=== PATIENT | male | born 1960 | race Caucasian/White ===

== ENCOUNTER 2024-01-12 15:14 | Emergency (ER) | payer MEDICAID ==
[~2024-01-12] VITALS: Ht 188 cm; Wt 77.9 kg
[2024-01-12 15:15] VITALS: BP 136/85; PULSE 91; RESP 16; TEMP 97.7; O2SAT 98
[2024-01-12] MEDS ORDERED: PRED20TA PO (15:39)
[2024-01-12] MEDS ORDERED: TRIA15CR61 TOP (15:39)
[2024-01-12] MEDS ORDERED: CEPH-585 PO (15:39)
[2024-01-12] MEDS ORDERED: HYDR-3686 PO (15:39)
[2024-01-12] MEDS: famotidine 20mg tablet PO ONE (16:01)
[2024-01-12] MEDS: dexamethasone sod phosphate 10mg/ml inj IM STA (16:01)
[2024-01-12] MEDS: diphenhydrAMINE 50 mg/ml inj IM ONE (16:01)
== END 2024-01-12 17:03 | disposition home or self-care (01) ==
LOC: ER 15:14
DX: L42 Pityriasis rosea (principal)
CPT/HCPCS: 96372; 99284; J1100; J1200

== ENCOUNTER 2024-03-06 08:58 | Emergency (ER) | payer MEDICAID ==
[~2024-03-06] VITALS: Ht 188 cm; Wt 84.7 kg
[2024-03-06] MEDS ORDERED: BETA45OI2 TOP (10:48)
[2024-03-06 10:58] VITALS: BP 146/88; PULSE 85; RESP 14; TEMP 98.6; O2SAT 99
== END 2024-03-06 10:55 | disposition home or self-care (01) ==
LOC: ER 08:58
DX: L30.9 Dermatitis, unspecified (principal); Z59.00 Homelessness unspecified; Z56.0 Unemployment, unspecified
CPT/HCPCS: 99283

== ENCOUNTER 2024-12-07 18:57 | Inpatient (IN) | payer MEDICAID ==
[~2024-12-07] VITALS: Ht 188 cm; Wt 83.3 kg
[~2024-12-07 18:57] MED LIST: BETA45OI2 TOP
[2024-12-07 19:36] LABS: MEAN PLATELET VOLUME 6.8 FL (7.4-10.4); RED CELL DISTRIBUTION WIDTH 17.2 % (11.5-14.5)
[2024-12-07 19:45] LABS: CREATININE 0.99 MG/DL (0.60-1.10); TOTAL CARBON DIOXIDE 26.8 MMOL/L (24-32); eCRCL 88 ML/MIN; eGFR 76 ML/MIN
--- NOTE | 2024-12-07 20:13 | Physician Documentation ---
History of Present Illness ~ Chief Complaint: Arm Pain Stated Complaint: HAND INFECTION Time Seen by MD: 19:19 Primary Medical Doctor: NONE Mode of Arrival: POV HPI Patient is seen today with complaints of infection in his arms bilaterally with scab formation and swelling and increased pain and drainage and discharge from both arms that is patient states started about four or five days ago. Patient states he does feel little feverish with some chills occasionally. He denies any chest pain or shortness of breath or abdominal pain or nausea, vomiting, diarrhea. Patient has no other concern or complaint at this time. Tetanus within 5 years: Yes Medication Reconciliation Allergies: Coded Allergies: No Known Allergies (Unverified , 12/07/24) Scheduled Betamethasone Dipropionate (Betamethasone Dipropionate), 1 APPLIC TOP Q12H Miscellaneous Medications Home Med List (No Home Medications), (Reported) Past Medical History Past Medical History: No Pertinent History Past Surgical History: no surgical history Alcohol Use: None Drug Use: none Lives In: Homeless Occupation: unemployed Review of Systems Constitutional: Denies: chills, fever, weakness Eyes: Denies: pain, blurred vision ENT: Denies: ear pain, nose pain, throat pain, mouth pain Respiratory: Denies: cough, shortness of breath Cardiovascular: Denies: chest pain, palpitations Gastrointestinal: Denies: abdominal pain, nausea, vomiting Genitourinary: Denies: burning, dysuria Male Genitalia: Denies: penile discharge, testicular pain Neurological: Denies: headache, dizziness Musculoskeletal: Denies: pain, swelling Integumentary: Denies: rash, lesions Allergic/Immunologic: Denies: hives, itching Hematologic/Lymphatic: Denies: no symptoms reported Psychiatric: Denies: depression, anxiety Physical Exam Vital Signs: Temperature: 99.6, Source: Temporal, Heart Rate: 109, Respiratory Rate: 16, BP: 132/95, Pulse Oximetry: 97, Weight: 83.300 Oxygen Flow Rate: 0 Physical Exam General: Awake and Alert, no acute distress. HEENT: Conjunctiva pink, Sclera clear, Mucus Membranes moist. Neck: Supple without masses and tenderness. Resp: Unlabored. Lungs clear to auscultation bilaterally. Heart: Regular Rate and rhythm, normal S1 and S2 without murmur, rub or gallop. Extremities: No cyanosis,clubbing or edema. Skin: On exam has severe erythema and multiple scab formation and drainage from multiple wound sites of bilateral upper extremities from about the mid upper arm/humerus down to the hands. Progress Results/Orders Results/Orders Orders - JOHNATHAN GORDILLO Hospitalist (12/07/24 20:09) Fill Out Med Reconciliation (12/07/24 20:09) Forearm,Incl.One Joint (12/07/24 21:19) Completed Orders - JOHNATHAN GORDILLO Normal Saline 1000ml (0.9% Sodium Chlori (12/07/24 20:02) Normal Saline 1000ml (0.9% Sodium Chlori (12/07/24 20:02) Vancomycin*Pharmacy To Dose* (Vancomycin (12/07/24 20:08) Dexamethasone Inj (Decadron 10mg/Ml Inj) (12/07/24 20:08) Vancomycin/Ns 1 Gm Add-[place] (Vancomyc (12/07/24 20:22) Forearm,Incl.One Joint (12/07/24 21:19) Medications Received in ER Medications (Trade) Dose Ordered Sig/Andres Route PRN Reason Start Time Stop Time Status Last Admin Dose Admin Sodium Chloride 1,000 ml @ 1,000 mls/hr ONCE STAT IV 12/07/24 20:02 12/07/24 21:01 DC 12/07/24 20:29 1,000 MLS/HR Sodium Chloride 1,000 ml @ 1,000 mls/hr ONCE STAT IV 12/07/24 20:02 12/07/24 21:01 DC 12/07/24 20:29 1,000 MLS/HR (Decadron 10mg/ ml inj) 12 mg ONCE STAT IV 12/07/24 20:08 12/07/24 20:10 DC 12/07/24 20:30 12 MG Vancomycin HCl 250 ml @ 166 mls/hr ONCE ONCE IV 12/07/24 20:22 12/07/24 21:52 DC 12/07/24 20:33 166 MLS/HR Vital Signs 12/07/24 12/07/24 12/07/24 19:05 19:22 20:38 Temp 99.6 Pulse 109 94 Resp 16 16 16 B/P (MAP) 132/95 141/82 (101) Pulse Ox 97 94 O2 Flow Rate 0 0 Laboratory Tests Test 12/07/24 19:20 White Blood Count 14.9 H Red Blood Count 4.21 L Hemoglobin 11.6 L Hematocrit 34.2 L Mean Corpuscular Volume 81.4 Mean Corpuscular Hemoglobin 27.6 Mean Corpuscular Hemoglobin Concent 33.9 Red Cell Distribution Width 17.2 H Platelet Count 612 H Mean Platelet Volume 6.8 L Neutrophils (%) (Auto) 82.4 H Lymphocytes (%) (Auto) 8.5 L Monocytes (%) (Auto) 6.8 Eosinophils (%) (Auto) 1.7 Basophils (%) (Auto) 0.6 Neutrophils # (Auto) 12.3 H Lymphocytes # (Auto) 1.3 Monocytes # (Auto) 1.0 H Eosinophils # (Auto) 0.2 Basophils # (Auto) 0.1 CBC Comment Sodium Level 127 L Potassium Level 4.8 Chloride Level 96 L Carbon Dioxide Level 26.8 Anion Gap 4 L Blood Urea Nitrogen 12 Creatinine 0.99 Estimated GFR/1.73 m2 76 BUN/Creatinine Ratio 12.1 Glucose Level 114 H Hemoglobin A1c 5.9 Lactic Acid Level 2.8 H Calcium Level 8.5 Pro-B-Type Natriuretic Peptide 209 H Albumin 2.5 L Procalcitonin < 0.05 Chemistry Comments Microbiology Date/Time Source Procedure Growth Status 12/07/24 19:26 Blood Arm Left Blood Culture - Preliminary NEGATIVE (LESS THAN 24 HOURS) Resulted Medical Decision Making Findings Patient is seen today with complaints of infection in his arms bilaterally with scab formation and swelling and increased pain and drainage and discharge from both arms that is patient states started about four or five days ago. Patient states he does feel little feverish with some chills occasionally. He denies any chest pain or shortness of breath or abdominal pain or nausea, vomiting, diarrhea. Patient has no other concern or complaint at this time. Patient did have elevated white count and lactic acid on labs. Given patient's severity of infection, IV vancomycin was started as well as IV fluids normal saline, hospitalist was consulted and patient will be admitted for further eval and treatment. Departure Disposition: ADMITTED INPATIENT Admitted to Inpatient Unit: to hospitalist Admission Level of Care: Med/Surg Impression: Primary Impression: Cellulitis of arm Qualified Codes: L03.119 - Cellulitis of unspecified part of limb Condition: Stable Additional Instructions: Patient did have elevated white count and lactic acid on labs. Given patient's severity of infection, IV vancomycin was started as well as IV fluids normal saline, hospitalist was consulted and patient will be admitted for further eval and treatment. Referrals: NO PRIMARY CARE PROVIDER (PCP) Signature Scribe Signature: No scribe Attestation: No scribe JOHNATHAN GORDILLO PAC Dec 07, 2024 20:13
[2024-12-07] MEDS: normal saline 1000ml 1,000 ML IV STA ×2 (20:29)
[2024-12-07] MEDS: dexamethasone sod phosphate 10mg/ml inj IV STA (20:30)
[2024-12-07] MEDS: vancomycin/NS 1 GM ADD-VANTAGE 250 ML IV ONE ×2 (20:33→22:32)
[2024-12-07] MEDS ORDERED: NO HOME MEDS (20:37)
--- NOTE | 2024-12-07 21:36 | RADIOLOGY REPORT ---
CLINICAL INDICATION: BILATERAL CELLULITIS RIGHT TECHNIQUE: DI FOREARM,INCL.ONE JOINT Comparison: None FINDINGS / IMPRESSION: No osseous abnormality identified. Elbow and carpal joint spaces are normal. Degenerative changes not ed in 1st CMC joint. Evidence of mild soft swelling in proximal forearm.
--- NOTE | 2024-12-07 21:36 | RADIOLOGY REPORT ---
EXAM: DI FOREARM,INCL.ONE JOINT REASON FOR EXAM: bilateral arm cellulitis TECHNIQUE: AP and lateral views of the left forearm are submitted for review. COMPARISON: None FINDINGS: The bones demonstrate grossly normal mineralization. No acute fracture or dislocation . Th ere is mild diffuse soft tissue edema. IMPRESSION: No acute fracture. Mild diffuse soft tissue edema.
--- NOTE | 2024-12-07 21:36 | RADIOLOGY REPORT ---
CHEST RADIOGRAPH Indication: sepsis protocol Technique: Single frontal view of the chest was obtained Comparison: None FINDINGS: Lines and Tubes: None Lungs: No focal consolidation. Hyperinflation of the lungs. Minimal blunting of the right costophren ic angle. No pneumothorax. Cardiomediastinal contours: Unremarkable Bones: No acute osseous abnormality. IMPRESSION: Hyperinflation of the lungs. Minimal blunting of the right costophrenic angle which may be from atel ectasis / scarring /trace effusion.
[2024-12-07 21:46] LABS: UA COLLECTION TYPE NON-SPECIFIED
[2024-12-07 21:50] LABS: LEUKOCYTE ESTERASE ,URINE NEGATIVE (Neg); NITRITES, URINE NEGATIVE (Neg); OCCULT BLOOD,URINE SMALL (Neg)
[2024-12-07 21:52] LABS: MUCUS STRANDS FEW /LPF (Neg); SQUAMOUS EPITHELIAL CELL,UR FEW /LPF (FEW)
[2024-12-07] MEDS ORDERED: magnesium Cl slow-release 64mg tablet PO PRN (22:05)
[2024-12-07] MEDS ORDERED: magnesium sulf-water 2g/50mL 50 ML IV PRN (22:05)
[2024-12-07] MEDS ORDERED: potassium Cl 40MEQ/1/2NS 520ml 520 ML IV PRN (22:05)
[2024-12-07] MEDS ORDERED: HYDROcodone/acetaminophen 10/325mg tab PO PRN (22:05)
[2024-12-07] MEDS ORDERED: ondansetron/PF 4mg/2ml inj IV PRN (22:05)
[2024-12-07] MEDS ORDERED: mag hydrox/Alum hydrox/simeth 30ml oral suspension PO PRN (22:05)
[2024-12-07] MEDS ORDERED: magnesium sulf-water 4G/100mL 100 ML IV PRN (22:05)
[2024-12-07] MEDS ORDERED: HYDROcodone/acetaminophen 5mg/325mg tablet PO PRN (22:05)
[2024-12-07] MEDS ORDERED: potassium Cl 20 mEq SR tablet PO PRN ×2 (22:05)
[2024-12-07] MEDS: CefTRIAXone/D5W-Rocephin 1gm 50 ML IV SCH (22:30)
[2024-12-07] MEDS: normal saline 1000ml 1,000 ML IV SCH (22:31)
[2024-12-07 22:32] LABS: PRO BRAIN NATRIURETIC PEPTIDE 209 PG/ML (0-125)
--- NOTE | 2024-12-07 23:13 | HISTORY AND PHYSICAL-Residence ---
History & Physical Providers to CC Resident Creating Document: CHELI CREWS RES ~ History of Present Illness Primary Medical Doctor: NONE Reason for Admit\Complaint: CELLULITIS BILATERAL UPPER EXTREMITY AND LEFT LOWER EXTREMITY History of Present Illness 74-year-old male with chronic upper and lower extremity rash presented to the ED chief complaints of worsening complains of edema, erythema and itching of bilateral upper and lower extremity. He states that his symptoms have been getting worse since the last week after he was working in his garden. He thinks he had a bug bite while doing yard work. Has a associated fever and chills. He smokes around three cigarettes a day and drinks occasional alcohol. Uses marijuana. Denies chest pain, dizziness, headaches, shortness of breath, nausea vomiting diarrhea or constipation. Discussed advanced care directives and he wishes to be DNR. Allergies: Coded Allergies: No Known Allergies (Unverified , 12/07/24) Home Medications Home Medications Active Betamethasone Dipropionate 0.05 % Oint...g. 1 Applic TOP Q12H Reported No Home Medications (Home Med List) Each Past Medical History Past Medical History None Past Surgical History Surgical History Comment Appendectomy Past Social History Smoking: Non-Smoker Alcohol Use: None Drug Use: None Lives In: Homeless Occupation: unemployed ROS ROS Reviewed in full. All negative except for pertinent positive HPI. Constitutional: Denies: chills, fever, weakness Eyes: Denies: pain, blurred vision ENT: Denies: ear pain, nose pain, throat pain, mouth pain Respiratory: Denies: cough, shortness of breath Cardiovascular: Denies: chest pain, palpitations Gastrointestinal: Denies: abdominal pain, nausea, vomiting Genitourinary: Denies: burning, dysuria Male Genitalia: Denies: penile discharge, testicular pain Neurological: Denies: headache, dizziness Musculoskeletal: Denies: pain, swelling Integumentary: Denies: rash, lesions Allergic/Immunologic: Denies: hives, itching Hematologic/Lymphatic: Denies: no symptoms reported Psychiatric: Denies: depression, anxiety Exam Vitals: Vital Signs Date Time Temp Pulse Resp B/P (MAP) Pulse Ox O2 Delivery O2 Flow Rate FiO2 12/07/24 20:38 94 16 141/82 (101) 94 0 12/07/24 19:05 99.6 General: General: Awake and Alert, no acute distress. HEENT: Conjunctiva pink, Sclera clear, Mucus Membranes dry. Neck: Supple without masses and tenderness. Resp: Unlabored. Equal breath sounds bilaterally. Heart: Regular rhythm, normal S1 and S2, no rub, murmur or gallop. Abdomen: Soft and non tender no organomegaly. Normal bowel sounds x4 quadrant normoactive. No guarding or rigidity. Extremities: Severe erythema, edema, scaling and crusting of bilateral upper extremity. Multiple scabs and wounds on the upper extremity. Left lower extremity erythema and edema up to knee, edema is 2+. Foul-smelling wound on the left anterior leg. PROTOHISTORIAN: No gross motor or sensory abnormalities. Diagnostic Data Last Recorded Lab Results: 12/07/24191912/07/241919 Advance Care Planning Advanced Care plannin - 30 Minutes Additional Plan 74-year-old male with chronic upper and lower extremity rash presented to the ED chief complaints of worsening complains of edema, erythema and itching of bilateral upper and lower extremity. Bilateral upper extremity chronic wounds with cellulitis Left lower extremity cellulitis Meeting SIRS criteria Severe erythema and edema of the upper extremity with multiple wounds, scabs and crusting Left lower extremity significant erythema edema with open wound on the anterior leg and foul-smelling Neutrophilic leukocytosis WBCs 14.9, lactic acid 2.8, procalcitonin within normal limits Received 2 L fluid bolus in the ED Was given vancomycin and Decadron in the ED Started IV antibiotics vanc and ceftriaxone Fluid resuscitation NS at 100 mL/hour Follow up with wound cultures, blood cultures, repeat LA, UTox Ordered CT of the left lower extremity, follow up with results Wound care consulted, appreciate recommendations Anemia Thrombocytosis No active signs or symptoms of bleeding, likely chronic Follow up iron studies, Continue to monitor CBC Awaiting med rec Code Status: DNR DVT prophylaxis: Lovenox Analgesia/sedation: [place] Line/tube: PIV GI prophylaxis: None Nutrition: Regular diet Prognosis: Guarded Disposition: Continue medical management. Cheli Crews MD. IM Resident PGY-3 Discussed case with resident and agree with the assessment and plan above with no changes. Sierra Thakur MD Critical Care Date of Service: Dec 07, 2024 Billing Provider: SIERRA THAKUR MD, ELIZABETH, JITENDRA Dec 07, 2024 23:12 SIERRA THAKUR MD Dec 09, 2024 10:08
[2024-12-07 23:25] VITALS: BP 150/81; PULSE 83; RESP 20; TEMP 97.6; O2SAT 97
[2024-12-08] VITALS (7 sets, daily range): BP systolic 106–135; BP diastolic 71–77; PULSE 68–76; RESP 15–20; TEMP 97.4–98.5; O2SAT 95–100
[2024-12-08 01:48] LABS: LEUKOCYTE ESTERASE ,URINE NEGATIVE (Neg); NITRITES, URINE NEGATIVE (Neg); OCCULT BLOOD,URINE SMALL (Neg)
[2024-12-08 01:51] LABS: UA COLLECTION TYPE CLN CATCH MIDSTREAM
[2024-12-08 01:53] LABS: MUCUS STRANDS FEW /LPF (Neg); SQUAMOUS EPITHELIAL CELL,UR FEW /LPF (FEW)
[2024-12-08 01:54] LABS: URINE AMPHETAMINE SCREEN POSITIVE (Neg); URINE BARBITUATE SCREEN NEGATIVE (Neg); URINE BENZODIAZEPINES SCREEN NEGATIVE (Neg); URINE CANNABINOID SCREEN POSITIVE (Neg); URINE COCAINE SCREEN NEGATIVE (Neg); URINE METHADONE SCREEN NEGATIVE (Neg); URINE OPIATE SCREEN NEGATIVE (Neg); URINE PHENCYCLIDINE SCREEN NEGATIVE (Neg)
[2024-12-08] MEDS: mometasone furoate 0.1% ointment 15g TP SCH (03:07)
--- NOTE | 2024-12-08 05:13 | RADIOLOGY REPORT ---
INDICATION: LEFT LEG CELLULITIS COMPARISON: None TECHNIQUE: CT of the left lower extremity was performed without contrast. Volume transverse images we re obtained and reconstructed in multiple planes using bone and soft tissue algorithms. Radiation Dose Information: CT Dose: CTDI volume is 16.8 mGy. Dose-length product is 1290.8 mGy*cm FINDINGS: The alignment is normal. The joint spaces are normal. No acute fracture or dislocation. 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 There is no joint effusion. Moderate diffuse subcutaneous soft-tissue edema and swelling most prominent in the calf, ankle and fo ot. IMPRESSION: Findings are suspicious for cellulitis.
[2024-12-08 05:29] LABS: MEAN PLATELET VOLUME 7.0 FL (7.4-10.4); RED CELL DISTRIBUTION WIDTH 17.1 % (11.5-14.5)
[2024-12-08 05:41] LABS: INR 1.1 INR
[2024-12-08 05:47] LABS: % IRON SATURATION 5 % (11-46)
[2024-12-08 06:01] LABS: CREATININE 0.74 MG/DL (0.60-1.10); PHOSPHORUS 3.3 MG/DL (2.3-4.5); TOTAL CARBON DIOXIDE 26.8 MMOL/L (24-32); eCRCL 117 ML/MIN; eGFR > 90 ML/MIN
[2024-12-08] MEDS: enoxaparin 40mg/0.4ml syringe SUBCUT SCH (07:25)
[2024-12-08] MEDS: nicotine 14mg patch - 24hr TD SCH (07:26)
[2024-12-08] MEDS: K and/or MAG REPLACEMENT MC SCH (08:00)
[2024-12-08] MEDS: vancomycin/NS 1 GM ADD-VANTAGE 250 ML IV SCH (08:59)
--- NOTE | 2024-12-08 12:16 | PROGRESS NOTE- Residence ---
Progress Note - Resident Providers to CC Resident Creating Document: MINNIE BIRCH RES ~ Antibiotic Timeout Antibiotic Ordered?: Yes Subjective Patient was examined at bed and has pain in his left leg,in addition patient also complain that rashes on his arm are itchy. patient is afebrile now. Objective Vital Signs Date Time Temp Pulse Resp B/P (MAP) Pulse Ox O2 Delivery O2 Flow Rate FiO2 12/08/24 08:00 20 97 Room Air 0.0 12/08/24 06:30 71 12/08/24 06:00 98.0 106/73 (84) Result Diagram: 12/08/2445612/08/24456 General: Awake and Alert, no acute distress. HEENT: Conjunctiva pink, Sclera clear, Mucus Membranes moist. Neck: Supple without masses and tenderness. Resp: Unlabored. Equal breath sounds bilaterally. Heart: Regular rhythm, normal S1 and S2, no rub, murmur or gallop. Abdomen: Soft and non tender no organomegaly. No guarding or rigidity. Extremities: Severe erythema, edema, scaling and crusting of bilateral upper extremity. Multiple scabs and wounds on the upper extremity. Left lower extremity erythema and edema up to knee, edema is 2+. Foul-smelling wound on the left anterior leg. 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 Coagulation Studies Laboratory Tests Test 12/08/24 04:57 Prothrombin Time 11.3 SECONDS (9.0-12.0) INR International Normalized Ratio 1.1 INR Coagulation Comments Assessment Assessment 74-year-old male with chronic upper and lower extremity rash presented to the ED chief complaints of worsening complains of edema, erythema and itching of bilateral upper and lower extremity. Plan Plan Bilateral uper and lower extremity possible superimposed soft tissue infection on chronic skin lesions Meeting SIRS criteria Severe erythema and edema of the upper extremity with multiple wounds, scabs and crusting Left lower extremity significant erythema edema with open wound on the anterior leg and foul-smelling Neutrophilic leukocytosis WBCs 14.9, lactic acid 2.8, procalcitonin within normal limits Received 2 L fluid bolus in the ED Was given vancomycin and Decadron in the ED Started IV antibiotics vanc and ceftriaxone Fluid resuscitation NS at 100 mL/hour Follow up with wound cultures, blood cultures, repeat LA, UTox Ordered CT of the left lower extremity, follow up with results Wound care consulted, appreciate recommendations On 12/08/2024 Ceftriaxone Discontinued. Patient continued on vancomycin, pharmacy to dose. Predisone 40 mg started. Wbc count is improved to 13.4 Normoctytic anemia/Iron deficiency anaemia Iron 11, TIBC 208, %saturation 5 Thrombocytosis No active signs or symptoms of bleeding, likely chronic Montior H and H. Disposition: Will continue to monitor patient, we will most likely refer him to network control supervisor. Date of Service: Dec 08, 2024 Billing Provider: KHANG PERRY MD Common Visit Codes: [id number] INP/OBS CARE(HIGH) MINNIE BIRCH, RES Dec 08, 2024 12:16 KHANG PERRY MD Dec 08, 2024 20:29
[2024-12-08] MEDS: VANCOmycin 1250MG/NS 250ml Bag 250 ML IV SCH (19:27)
[2024-12-09 06:00] VITALS: BP 138/79; PULSE 61; RESP 16; TEMP 97.4; O2SAT 99
[2024-12-09 06:10] LABS: MEAN PLATELET VOLUME 7.0 FL (7.4-10.4); RED CELL DISTRIBUTION WIDTH 17.3 % (11.5-14.5)
[2024-12-09 06:27] LABS: CREATININE 0.81 MG/DL (0.60-1.10); PHOSPHORUS 3.5 MG/DL (2.3-4.5); TOTAL CARBON DIOXIDE 26.9 MMOL/L (24-32); eCRCL 107 ML/MIN; eGFR > 90 ML/MIN
[2024-12-09 10:00] VITALS: BP 122/66; PULSE 62; RESP 16; TEMP 97.8; O2SAT 96
[2024-12-09] MEDS ORDERED: DOXY-243 PO (13:06)
[2024-12-09] MEDS ORDERED: ACET650T58 PO (13:06)
[2024-12-09] MEDS ORDERED: MULT-25 PO (13:06)
[2024-12-09] MEDS ORDERED: PRED10TA PO (13:06)
--- NOTE | 2024-12-09 15:10 | DISCHARGE SUMMARY-Residence ---
Discharge Summary Providers to CC Resident Creating Document: MINNIE BIRCH RES ~ Discharge Summary Admission Diagnosis: Possible Cellulitis superimposed on underlying skin condition. Hospital Course DATE OF ADMISSION: 12/07/2024 DATE OF DISCHARGE:12/09/2024 Labs on Discharge Day Wbc: 13.2 Rbc: 3.80 hemoglobin: 10.5 Creatinine: 0.81 Platelet count: 492 Imaging 12/07/24: Chest X-ray: No acute cardiopulmonary disease. 12/07/24: Lower Extremity CT: Findings suspicious for cellulitis 12/07/24: Forearm Left X- Ray: The bones demonstrate grossly normal mineralization. No acute fracture or dislocation .There is mild diffuse soft tissue edema. 12/07/24: Forearm Right X-ray: No osseous abnormality identified. Elbow and carpal joint spaces are normal. Degenerative changes noted in 1st CMC joint. Evidence of mild soft swelling in proximal forearm. Discharge Diagnosis\Comment: Possible Cellulitis superimposed on underlying skin condition. Operations\Procedures: none Consultants: none Complications: None Condition on DC: Stable New Medications: Acetaminophen (Acetaminophen 8 Hour) 650 Mg Tablet.sa 1 TAB PO Q8H for 7 Days, #20 TAB Doxycycline Hyclate (Doxycycline Hyclate) 100 Mg Tablet.dr 100 MG PO BID for 7 Days, #14 TAB Multivitamin with Folic Acid (Thera Tablet) 400 Mcg Tablet 1 TAB PO DAILY for 30 Days, #30 TAB 0 Refills Prednisone (Prednisone) 10 Mg Tablet 0 PO DAILY for 3 Days, #6 TAB Take 2 tablets daily for 3 days Discharge Summary: History of Present Illness 74-year-old male with chronic upper and lower extremity rash presented to the ED chief complaints of worsening complains of edema, erythema and itching of bilateral upper and lower extremity. He states that his symptoms have been getting worse since the last week after he was working in his garden. He thinks he had a bug bite while doing yard work. Has a associated fever and chills. He smokes around three cigarettes a day and drinks occasional alcohol. Uses marijuana. Denies chest pain, dizziness, headaches, shortness of breath, nausea vomiting diarrhea or constipation. Discussed advanced care directives and he wishes to be DNR. Hospital Course Patient presented to ER with complain of edema, erythema and itching of bilateral upper and lower extremities which was suspected to be possible cellulitis superimposed on underlying skin condition.Patient received 2 L of NS fluid bolus, NS 1000 ml@100 ml/hr, IV Ceftriaxone and Vancomycin. Patient also received decadron once and later was started on prednisone 40 mg QAM PO Mometasone furoate ointment was applied too. In addition to that CT scan lower extremity performed which was suspicious for cellulitis. DVT Prophylaxis: Lovenox 40 mg daily. Vital Signs on Discharge Day Date Time Temp Pulse Resp B/P (MAP) Pulse Ox O2 Delivery O2 Flow Rate FiO2 12/09/24 10:00 97.8 62 16 122/66 (84) 96 12/09/24 07:00 Room Air 12/08/24 08:00 0.0 Physical Examination. General: Awake and Alert, no acute distress. HEENT: Conjunctiva pink, Sclera clear, Mucus Membranes moist. Neck: Supple without masses and tenderness. Resp: Unlabored. Equal breath sounds bilaterally. Heart: Regular rhythm, normal S1 and S2, no rub, murmur or gallop. Abdomen: Soft and non tender no organomegaly. No guarding or rigidity. Extremities: erythema,scaling and crusting of bilateral upper extremity and lower extremities, multiple wounds on the upper extremity and lower extremity noted. CUFF SETTER: No gross motor or sensory abnormalities. Discharge Home Medications. Acetaminophen (Acetaminophen 8 Hour) 650 Mg Tablet 1 TAB PO QHR for 7 days Doxycycline Hyclate 100 Mg Tablet PO BID 7 Days Multivitamin with Folic Acid (Thera Tablet) 400 Mcg Tablet 1 Tab daily PO for 30 days Prednisone 10 Mg Tablet Take 2 tablets daily for 3 days Discharge Instructions Follow up with your PCP Get a referral for Save All Operator from PCP Continue Wound care Repeat CBC,CMP and Iron Profile in 2 weeks. Take medications as prescribed. Call 911 if you have any emergency. *Problems/Diagnosis: (1) Cellulitis Total Time Spent on D/C: Up to 30 Minutes Date of Service: Dec 09, 2024 Billing Provider: KHANG PERRY MD Common Visit Codes: 53737-YQE/OBS DISCH DAY >30min MINNIE BIRCH, JITENDRA Dec 09, 2024 15:08 KHANG PERRY MD Dec 09, 2024 20:36
[2024-12-10] MEDS ORDERED: VANCOMYCIN LEVEL IV ONE (07:30)
== END 2024-12-09 14:41 | disposition home health service (06) | DRG 383 ==
LOC: ER 18:57 → ED HOLD 20:48 → ORTHO 4S 23:23
PROVIDERS: ADMIT Internal Medicine Pulmonary Disease; ATTEND Internal Medicine
DX: L03.114 Cellulitis of left upper limb (principal); L03.115 Cellulitis of right lower limb; D64.9 Anemia, unspecified; D72.828 Other elevated white blood cell count; S41.101A Unspecified open wound of right upper arm, initial encounter; L03.116 Cellulitis of left lower limb; D75.838 Other thrombocytosis; Z66 Do not resuscitate; L03.113 Cellulitis of right upper limb; S41.102A Unspecified open wound of left upper arm, initial encounter; X58.XXXA Exposure to other specified factors, initial encounter; Y93.89 Activity, other specified; Y92.89 Other specified places as the place of occurrence of the external cause; Y99.8 Other external cause status
CPT/HCPCS: 36415; 71045; 73090; 73700; 80048; 80053; 80305; 81001; 82728; 83036; 83540; 83550; 83605; 83735; 83880; 84100; 84145; 85025; 85610; 87040; 87081; 96365; 96366; 97116; 97161; 97530; 99285; A6223; A6446; G0378; J0696; J1100; J1650; J3373; J3374; J7030; J7512